=== PATIENT | female | born 1955 | race Caucasian/White ===

== ENCOUNTER 2018-05-30 13:24 | Emergency (ER) | payer BC ==
--- NOTE | 2018-05-30 14:14 | UC ---
Respiratory Complaint HPI - HPI Summary HPI Summary: Pt presents with c/o persistent cough. Pt was seen at ER at another facility and diagnosed with URI "several days ago". Pt is requesting a return to work note. - History of Current Complaint Stated Complaint: F/U UPPER RESPIRATORY CONCERN Time Seen by Provider: 05/30/18 14:08 Hx Obtained From: Patient ?: No Onset/Duration: Gradual Onset, Lasting Days, Still Present Timing: Intermittent Episodes Severity Initially: Mild Severity Currently: None Character: Cough: Productive Aggravating Factors: Exertion, Deep Breaths Alleviating Factors: OTC Meds, Other - tessalon perles Associated Signs And Symptoms: Positive: URI, Nasal Congestion - Risk Factors Pulmonary Embolism Risk Factors: Negative Cardiac Risk Factors: Negative Pseudomonas Risk Factors: Negative Tuberculosis Risk Factors: Negative - Allergies/Home Medications Allergies/Adverse Reactions: Allergies Allergy/AdvReac Type Severity Reaction Status Date / Time acetaminophen [From Vicodin] AdvReac very ill Verified 05/30/18 14:18 hydrocodone [From Vicodin] AdvReac very ill Verified 05/30/18 14:18 Home Medications: Home Medications NK [No Home Medications Reported] 05/30/18 [History Confirmed 05/30/18] PMH/Surg Hx/FS Hx/Imm Hx Previously Healthy: Yes - Family History Known Family History: Positive: Cardiac Disease - Social History Occupation: Employed Full-time Lives: With Family Have You Smoked in the Last Year: No Review of Systems All Other Systems Reviewed And Are Negative: Yes Constitutional: Positive: Negative Skin: Positive: Negative Eyes: Positive: Negative ENT: Positive: Sinus Congestion Respiratory: Positive: Cough Cardiovascular: Positive: Negative Gastrointestinal: Positive: Negative Genitourinary: Positive: Negative Motor: Positive: Negative Neurovascular: Positive: Negative Musculoskeletal: Positive: Negative Neurological: Positive: Negative Psychological: Positive: Negative Is Patient Immunocompromised?: No Physical Exam Triage Information Reviewed: Yes Appearance: Well-Appearing Vital Signs Reviewed: Yes Eye Exam: Normal ENT Exam: Normal Dental Exam: Normal Neck exam: Normal Respiratory Exam: Normal Cardiovascular Exam: Normal Musculoskeletal Exam: Normal Neurological Exam: Normal Psychological Exam: Normal Skin Exam: Normal Respiratory Course/Dx - Differential Dx/Diagnosis Differential Diagnosis/HQI/PQRI: Influenza, Other Provider Diagnosis: Post-viral cough syndrome Discharge - Sign-Out/Discharge Documenting (check all that apply): Patient Departure All imaging exams completed and their final reports reviewed: No Studies - Discharge Plan Condition: Stable Disposition: HOME Patient Education Materials: Acute Cough (ED) Forms: *Work Release Referrals: Care [facility] [Outside] - If Needed No Primary Care Phys,NOPCP [Primary Care Provider] - - Billing Disposition and Condition Condition: STABLE Disposition: Home - Attestation Statements Provider Attestation: I was available for consult. This patient was seen by the [facility]. The patient was not presented to, seen by, or examined by me. -Raegan
[2018-05-30 14:18] VITALS: BP 130/82
== END 2018-05-30 14:22 | disposition home or self-care (01) ==
LOC: UCCORT 13:24
DX: Z51.89 Encounter for other specified aftercare (principal); R05 Cough; Z88.6 Allergy status to analgesic agent; Z88.5 Allergy status to narcotic agent
CPT/HCPCS: 99211; G0463

== ENCOUNTER 2018-09-07 19:06 | Emergency (ER) | payer BC, MEDICAID ==
[2018-09-07 19:29] VITALS: BP 126/71
[2018-09-07] MEDS ORDERED: Amoxicillin PO (*) 500 MG CAP PO ONE (19:42)
--- NOTE | 2018-09-07 19:42 | UC ---
Throat Pain/Nasal Dmitriy HPI - HPI Summary HPI Summary: Has had worsening right maxillary sinus pain over the last 5 days. Unaware of seasonal allergies. Fever today. Some right sided neck pain as well. - History of Current Complaint Chief Complaint: UCGeneralIllness Stated Complaint: SINUS Time Seen by Provider: 09/07/18 19:32 Hx Obtained From: Patient Onset/Duration: Gradual Onset, Lasting Days - 5, Worse Since - onset Severity: Moderate Pain Intensity: 5 Cough: None Associated Signs & Symptoms: Positive: Sinus Discomfort, Nasal Discharge, Fever - Allergies/Home Medications Allergies/Adverse Reactions: Allergies Allergy/AdvReac Type Severity Reaction Status Date / Time acetaminophen [From Vicodin] AdvReac very ill Verified 05/30/18 14:18 hydrocodone [From Vicodin] AdvReac very ill Verified 05/30/18 14:18 Home Medications: Home Medications Fluticasone NASAL SPRAY 50MCG* [Flonase NASAL SPRAY 50MCG*] 2 spray BOTH NARES DAILY PRN 09/07/18 [History Confirmed 09/07/18] Ibuprofen TAB* [Advil TAB*] 600 mg PO Q6H PRN 09/07/18 [History Confirmed ] PMH/Surg Hx/FS Hx/Imm Hx Previously Healthy: Yes - Surgical History Surgical History: None - Family History Known Family History: Positive: Cardiac Disease Negative: Diabetes - Social History Occupation: Retired Lives: With Family Alcohol Use: None Substance Use Type: None Smoking Status (MU): Never Smoked Tobacco Have You Smoked in the Last Year: No Review of Systems All Other Systems Reviewed And Are Negative: Yes Constitutional: Positive: Fever ENT: Positive: Nasal Discharge - with blood and purulent drainage, Sinus Pain/ Tenderness Is Patient Immunocompromised?: No Physical Exam Triage Information Reviewed: Yes Appearance: No Pain Distress, Well-Nourished, Ill-Appearing Vital Signs: Initial Vital Signs Temp 99.3 F 09/07/18 19:24 Pulse 93 09/07/18 19:24 Resp 16 09/07/18 19:24 BP 126/71 09/07/18 19:24 Pulse Ox 97 09/07/18 19:24 Vital Signs Reviewed: Yes Eyes: Positive: Conjunctiva Clear ENT: Positive: Pharynx normal, Nasal congestion - with allergic changes., TMs normal Neck: Positive: Supple, Tenderness @ - right SCM muscle with trigger points. Respiratory Exam: Normal Cardiovascular Exam: Normal Musculoskeletal Exam: Normal Neurological Exam: Normal Psychological Exam: Normal Skin Exam: Normal Throat Pain/Nasal Course/Dx - Differential Dx/Diagnosis Differential Diagnosis/HQI/PQRI: Laryngitis, Sinusitis, URI Provider Diagnosis: Allergic rhinitis, Acute sinusitis Discharge - Sign-Out/Discharge Documenting (check all that apply): Patient Departure All imaging exams completed and their final reports reviewed: No Studies - Discharge Plan Condition: Stable Disposition: HOME Prescriptions: Amoxicillin PO (*) [Amoxicillin 875 MG (*)] 875 mg PO BID #20 tab Patient Education Materials: Allergic Rhinitis (ED), Sinusitis (ED), Amoxicillin (By mouth) Referrals: No Primary Care Phys,NOPCP [Primary Care Provider] - Additional Instructions: NEILMED SINUS RINSE: CHECK OUT AT [employer] Saline nasal wash helps with mucous, allergies and congestion. It can be used up to twice a day or only as needed. Use lukewarm tap water. It does not have to be sterilized or distilled water. Do 1/3 on each side and snort out of both nostrils. Repeat the process with 1/6 of the bottle on each side with snorting in between to finish the solution in the bottle - Billing Disposition and Condition Condition: STABLE Disposition: Home
== END 2018-09-07 19:56 | disposition home or self-care (01) ==
LOC: UCCORT 19:06
DX: J01.90 Acute sinusitis, unspecified (principal); J30.9 Allergic rhinitis, unspecified; Z88.5 Allergy status to narcotic agent; Z88.8 Allergy status to other drugs, medicaments and biological substances
CPT/HCPCS: 99212; A9270-GY; G0463